=== PATIENT | male | born 1995 | race Caucasian/White ===

== ENCOUNTER 2016-05-26 17:56 | Emergency (ER) | payer SELFPAY ==
[2016-05-26] MEDS ORDERED: MOTRIN 600 MG PO ONE (18:14)
[2016-05-26] MEDS ORDERED: MOTRIN 600 MG ONE (18:18)
--- NOTE | 2016-05-26 18:20 | ERPHSYRPT ---
- History of Present Illness Time Seen by Provider: 05/26/16 18:08 Source: patient Exam Limitations: no limitations Patient Subjective Stated Complaint: back pain post fall Triage Nursing Assessment: standing on bucket last night working in bathroom and bucket and fell off landing on back. c/o pain between shoulder blades down middle of back to low back/hip,level. no bruising or swelling/redness noted. denies pain with urination and bowels. states has chronic back pain 'all the time but this hurts worse' Physician History: patient fell last pm from standing on a bucket; no head or neck injury; no loc; no abdominal pain , N&V; no hemauria; pain in post left chest and mid back; no other injuries or complaints; no prior hx Timing/Duration: yesterday, sudden, worse Method of Injury: fall Quality: sharp, aching Back Pain Location: lumbar spine Severity of Pain-Max: moderate Severity of Pain-Current: moderate Modifying Factors: Improves With: movement Associated Symptoms: denies symptoms Previous symptoms: no prior history Allergies/Adverse Reactions: No Known Drug Allergies Allergy (Unverified 03/20/13 12:03) Home Medications: No Home Meds 1 ea MC UD 05/26/16 [History] Hx Tetanus, Diphtheria Vaccination/Date Given: Yes Hx Influenza Vaccination/Date Given: No Hx Pneumococcal Vaccination/Date Given: No Immunizations Up to Date: Yes - Review of Systems Constitutional: No Symptoms Eyes: No Symptoms Ears, Nose, & Throat: No Symptoms Respiratory: No Cough, No Cyanosis, No Dyspnea Cardiac: Chest Pain (pot left ribs only), No Edema, No Palpitations, No Syncope Abdominal/Gastrointestinal: No Abdominal Pain, No Nausea, No Vomiting, No Diarrhea Genitourinary Symptoms: No Dysuria, No Frequency, No Hematuria, No Hesitancy, No Urinary Retention, No Flank Pain Musculoskeletal: Back Pain, Fall, Injury, No Arthralgias, No Neck Pain Skin: No Symptoms Neurological: No Symptoms Psychological: No Symptoms Endocrine: No Symptoms Hematologic/Lymphatic: No Symptoms Immunological/Allergic: No Symptoms - Past Medical History Pertinent Past Medical History: Yes Other Medical History: chronic back pain - Past Surgical History Past Surgical History: No - Social History Smoking Status: Current every day smoker How long have you smoked: 2 Exposure to second hand smoke: Yes Alcohol Use: Socially Drug Use: none Patient Lives Alone: No Significant Family History: no pertinent family hx - Nursing Vital Signs Temperature: 97.6 F Temperature Source: Oral Pulse Rate: 100 Respiratory Rate: 18 Pain Intensity: 8 - Physical Exam General Appearance: mild distress, alert, thin Eye Exam: PERRL/EOMI, eyes nml inspection, No photophobia Ears, Nose, Throat Exam: normal ENT inspection, pharynx normal, moist mucous membranes Neck Exam: normal inspection, non-tender, supple, full range of motion, No meningismus, No JVD, No subcutaneous emphysema Respiratory Exam: normal breath sounds, chest tenderness (post elft ribs only;) , lungs clear, airway intact, No respiratory distress, No diminished breath sounds, No crackles/rales, No rhonchi, No wheezing, No pleural rub, No other ( no crepitus) Cardiovascular Exam: regular rate/rhythm, normal heart sounds, normal peripheral pulses, tachycardia (100), capillary refill <2 sec, No murmur Gastrointestinal Exam: soft, normal bowel sounds, No tenderness, No guarding, No rebound, No organomegaly Rectal Exam: deferred Back Exam: normal inspection, normal range of motion, vertebral tenderness ( upper lumbar midline), No CVA tenderness, No decreased range of motion Extremity Exam: normal inspection, normal range of motion, pelvis stable, No clarke's sign, No pedal edema Peripheral Pulses: carotid (R): 4+, carotid (L): 4+, femoral (R): 4+, femoral (L ): 4+, dorsalis-pedis (R): 3+, dorsalis-pedis (L): 3+ Neurologic Exam: alert, oriented x 3, cooperative, 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 tested, normal mood/affect, nml cerebellar function, nml station & gait, sensation nml Skin Exam: normal color, warm, dry, No rash, No cyanosis SpO2 Interpretation: normal SpO2: 99 Oxygen Delivery: Room Air - Course Nursing assessment & vital signs reviewed: Yes - Radiology Exams Chest X-ray Interpretation: Interpreted by me, Negative, No Fracture, No Pneumothorax , Nml Heart Size, No Infiltrates, Nml Mediastinum L-Spine X-ray Interpretation: Interpreted by me, No Fracture, Other (spasm) Ordered Tests: Active Orders 24 hr Category Date Time Status Re-Check Vital Signs STAT Care 05/26/16 18:14 Completed CHEST 2 VIEWS (PA AND LAT) Stat Exams 05/26/16 18:15 Taken LUMBAR COMPLETE (MIN 4 VIEWS) Stat Exams 05/26/16 18:15 Taken Medication Summary Discontinued Medications Generic Name Dose Route Start Last Admin Trade Name Freq PRN Reason Stop Dose Admin Ibuprofen 600 mg 05/26/16 18:14 05/26/16 18:21 Motrin 600 Mg PO 05/26/16 18:15 600 mg STAT ONE Administration Ibuprofen Confirm 05/26/16 18:18 Motrin 600 Mg Administered 05/26/16 18:19 Dose 600 mg .ROUTE .STK-MED ONE - Progress Progress: pain not gone completely, re-examined (after xr) Progress Note: 05/26/16 18:19 xr ordered; meds given; will recheck 05/26/16 18:59 recheck, xr reviewed and negative; results and instructions given Counseled pt/family regarding: diagnosis, need for follow-up, rad results - Departure Time of Disposition: 18:59 Departure Disposition: Home Clinical Impression: Back contusion Condition: Stable Critical Care Time: No Referrals: MELISSA AGUILAR [Primary Care Provider] - Instructions: Contusion, Prevent Falls Additional Instructions: rest; ice; Back pain instructions. Rest, ice x 24-48 hours, then warm compresses; no heavy lifting (>20#'s) x 3-5 days; call [facility] or [facility] doctor in am for follow up appointment and or referral as needed. Return if problems. Take meds as prescribed. Follow-up with family doctor as directed. Call for appointment. Return if any problems. If you smoke please stop. Call or follow up with your family doctor for assistance if you need it to stop. Please wear your seatbelt when driving. Have a nice day. Thank you for allowing us to participate in your care today. :o) Dr Alfonzo Winter Prescriptions: Naproxen Sodium [Anaprox Ds] 550 mg PO Q8H PRN PRN #14 tablet PRN Reason: Pain
[2016-05-26 19:18] VITALS: BP 115/59; PULSE 93; O2SAT 100
--- NOTE | 2016-05-27 08:47 | XRAY ---
Indication: Pain following fall. Comparison: January 25, 2012 PA/lateral chest again demonstrates normal heart and lungs. Bony thorax intact again with minimal scoliosis.
--- NOTE | 2016-05-27 08:47 | XRAY ---
Indication: Pain following fall. Comparison: None 5 views of the lumbar spine demonstrates 5 lumbar vertebral segments in normal alignment with disc spaces preserved. No acute fracture, subluxation, or pars interarticularis defect. Visualized soft tissues unremarkable.
== END 2016-05-26 19:18 | disposition home or self-care (01) ==
LOC: ED 17:56
DX: S30.0XXA Contusion of lower back and pelvis, initial encounter (principal); W17.89XA Other fall from one level to another, initial encounter
CPT/HCPCS: 71020; 72110; 99283; 99284

== ENCOUNTER 2022-03-07 19:30 | Emergency (ER) | payer SELFPAY ==
[2022-03-07 20:42] VITALS: O2SAT 99
[2022-03-07 21:18] VITALS: BP 125/72; PULSE 72
[2022-03-07] MEDS ORDERED: Augmentin 875-125 Tablet PO ONE (21:32)
[2022-03-07] MEDS ORDERED: TORAdol 30 mg Injection IM ONE (21:32)
[2022-03-07] MEDS ORDERED: Augmentin 875-125 Tablet ONE (21:34)
[2022-03-07] MEDS ORDERED: TORAdol 30 mg Injection ONE (21:34)
--- NOTE | 2022-03-07 21:38 | ERPHSYRPT ---
- History of Present Illness Time Seen by Provider: 03/07/22 20:50 Source: patient Exam Limitations: no limitations Patient Subjective Stated Complaint: My right cheek is really swollen and I have tooth pain. Triage Nursing Assessment: pt ambulated into ER without diff. Pt alert and oriented x3, cooperative. Pt has edema to rt cheek and face, c/o pain to teeth to rt upper and lower. Obvious dental caries noted to upper and lower. Pt states, "the swelling just started this morning around 8am but has gotten worse throughout the day". Physician History: Patient is a 26-year-old male with a history of carious teeth presents to our ED with complaints of dental pain and swollen right cheek. Symptoms started 2 to 3 days ago. Swelling of his cheek was observed today. Patient admits to history of multiple carious teeth. Pain described as an ache that is localized. No radiation. Pain worse with palpation to the right upper canine. Pain improved with rest. No trauma. No headache. No fever. Patient states otherwise healthy. He voices no other complaints or concerns at this time. Portions of this note were created with voice recognition technology. There may be grammatical, spelling, punctuation or sound alike errors Timing/Duration: day(s) Severity: moderate (2 to 3 days ago) Modifying Factors: Improves With: nothing Associated Symptoms: denies symptoms Allergies/Adverse Reactions: No Known Drug Allergies Allergy (Verified 03/07/22 20:49) Hx Tetanus, Diphtheria Vaccination/Date Given: Yes Hx Influenza Vaccination/Date Given: No Hx Pneumococcal Vaccination/Date Given: No Immunizations Up to Date: Yes Travel Risk - International Travel Have you traveled outside of the country in past 3 weeks: No - Coronavirus Screening Are you exhibiting any of the following symptoms?: No Close contact with a COVID-19 positive Pt in past 14-21 Days: No - Vaccine Status Have you recieved a Covid-19 vaccination: No - Review of Systems Constitutional: No Symptoms, No Fever, No Chills Eyes: No Symptoms Ears, Nose, & Throat: No Symptoms Respiratory: No Symptoms, No Cough, No Dyspnea Cardiac: No Symptoms, No Chest Pain, No Edema, No Syncope Abdominal/Gastrointestinal: No Symptoms, No Abdominal Pain, No Nausea, No Vomiting, No Diarrhea Genitourinary Symptoms: No Symptoms, No Dysuria Musculoskeletal: No Symptoms, No Back Pain, No Neck Pain Skin: No Symptoms, No Rash Neurological: No Symptoms, No Dizziness, No Focal Weakness, No Sensory Changes Psychological: No Symptoms Endocrine: No Symptoms Hematologic/Lymphatic: No Symptoms Immunological/Allergic: No Symptoms All Other Systems: Reviewed and Negative - Past Medical History Pertinent Past Medical History: Yes Musculoskeletal History: Fractures, Other Other Medical History: back pain from falling from ladder - Past Surgical History Past Surgical History: No Musculoskeletal: Orthopedic Surgery Other Surgical History: jace and pins to rt femur - Social History Smoking Status: Current every day smoker How long have you smoked: 16 yrs Exposure to second hand smoke: Yes Alcohol Use: Socially Drug Use: none Patient Lives Alone: No Significant Family History: no pertinent family hx - Nursing Vital Signs Nursing Vital Signs: Initial Vital Signs Temperature 98.1 F 03/07/22 20:40 Pulse Rate 88 03/07/22 20:40 Respiratory Rate 18 03/07/22 20:40 Blood Pressure 141/69 03/07/22 20:40 O2 Sat by Pulse Oximetry 99 03/07/22 20:40 Pain Scale Pain Intensity 7 - Physical Exam General Appearance: no apparent distress, alert, other (Multiple carious teeth including teeth #5 6 and 7. Possible canine space abscess.) Eye Exam: PERRL/EOMI, eyes nml inspection Ears, Nose, Throat Exam: normal ENT inspection, TMs normal, pharynx normal, moist mucous membranes Neck Exam: normal inspection, non-tender, supple, full range of motion Respiratory Exam: normal breath sounds, lungs clear, No chest tenderness, No respiratory distress Cardiovascular Exam: regular rate/rhythm, normal heart sounds, normal peripheral pulses Gastrointestinal/Abdomen Exam: soft, normal bowel sounds, No tenderness, No mass Back Exam: normal inspection, normal range of motion, No CVA tenderness, No vertebral tenderness Extremity Exam: normal inspection, normal range of motion, pelvis stable Neurologic Exam: alert, oriented x 3, cooperative, normal mood/affect, nml cerebellar function, nml station & gait, sensation nml, No motor deficits Skin Exam: normal color, warm, dry, No rash Lymphatic Exam: No adenopathy SpO2 Interpretation: normal SpO2: 99 O2 Delivery: Room Air - Course Nursing assessment & vital signs reviewed: Yes Ordered Tests: Medication Summary Generic Name Dose Route Start Last Admin Trade Name Freq PRN Reason Stop Dose Admin Amoxicillin/Clavulanate Potassium 875 mg 03/07/22 21:32 Amox Tr/Potassium Clavulanate 875 Mg Tablet PO 03/07/22 21:33 STAT ONE Ketorolac Tromethamine 30 mg 03/07/22 21:32 Ketorolac Tromethamine 30 Mg/Ml Inj IM 03/07/22 21:33 STAT ONE - Progress Progress: improved Progress Note: Patient reassessed. Pain improved. Patient received a IM dose of Toradol as well as Augmentin. A prescription for Augmentin was forwarded to patient's pharmacy. Patient agrees to follow-up with a dentist within 48 hours for evaluation. He voices no other complaints concerns at this time. Portions of this note were created with voice recognition technology. There may be grammatical, spelling, punctuation or sound alike errors 03/07/22 21:38 Counseled pt/family regarding: diagnosis, need for follow-up - Departure Departure Disposition: Home Clinical Impression: Dental abscess, Pain, dental, Carious teeth Condition: Stable Critical Care Time: No Referrals: DANIELLA MCKENNA [Primary Care Provider] - Follow up/PCP as directed Additional Instructions: Discharge/Care Plan JUANREA LOMAX was seen on 03/07/22 in the Emergency Room. The patient was counseled regarding Diagnosis,Lab results, Imaging studies, need for follow up and when to return to the Emergency Room. Prescriptions given: Discharge Note I have spoken with the patient and/or caregivers. I have explained the patient's condition, diagnosis and treatment plan based on the information available to me at this time. I have answered the patient's and/or caregiver's questions and addressed any concerns. The patient and/or caregivers have as good understanding of the patient's diagnosis, condition and treatment plan as can be expected at this point. The vital signs have been stable. The patient's condition is stable and appropriate for discharge from the emergency department. The patient will pursue further outpatient evaluation with the primary care physician or other designated or consulting physician as outlined in the discharge instructions. The patient and/or caregivers are agreeable to this plan of care and follow-up instructions have been explained in detail. The patient and/or caregivers have received these instruction. The patient/and or caregivers are aware that any significant change in condition or worsening of symptoms should prompt an immediate return to this or the closest emergency department or call 911. Prescriptions: Amox Tr/Potass Clav. 875 mg [Augmentin 875-125 Tablet] 875 mg PO BID 7 Days #14 tablet
== END 2022-03-07 21:44 | disposition home or self-care (01) ==
LOC: ED 19:30
DX: K04.7 Periapical abscess without sinus (principal); K02.9 Dental caries, unspecified; K08.89 Other specified disorders of teeth and supporting structures; Z72.0 Tobacco use; Z28.310 Unvaccinated for COVID-19
CPT/HCPCS: 96372; 99283; J1885; A9270-GY

== ENCOUNTER 2025-03-10 05:28 | Emergency (ER) | payer MEDICAID ==
[2025-03-10 05:57] VITALS: RESP 18; TEMP 98.1
--- NOTE | 2025-03-10 06:09 | ERPHSYRPT ---
- History of Present Illness Time Seen by Provider: 03/10/25 06:00 Source: patient Exam Limitations: no limitations Patient Subjective Stated Complaint: c/o numbess Triage Nursing Assessment: patient brought to ED by friend with c/o facial numbness. patient states it started last , denies chest pain, headaches, N/V/D, or dizziness. states he doesn't have issues swallowing, gait steady, vitals wnl, skin w/n/d, patient has facial droop when asked to smile, unablw to raise right eyebrow. doesn't appear to be in any distress Physician History: 29-year-old male presents to the ED for right facial drooping associated drooling for few days. Patient noted this started on . No headache. No numbness tingling weakness. No associated trauma. No other systemic symptoms. Denies any recent illnesses. Denies ear pain. Denies facial pain. Timing/Duration: day(s) Severity: moderate Character of Deficits: new weakness, altered sensation, Left Facial Deficits: no difficulties Baseline/Normal Cognition: alert oriented x 3 Current Cognition: alert oriented x 3 Baseline Gait: walks w/o assistance Associated Symptoms: denies symptoms, other (Patient does note now his right eye is starting to get irritated and dry.) Allergies/Adverse Reactions: No Known Drug Allergies Allergy (Verified 03/10/25 05:57) Hx Tetanus, Diphtheria Vaccination/Date Given: No (unsure) Hx Influenza Vaccination/Date Given: No Hx Pneumococcal Vaccination/Date Given: No Travel Risk - International Travel Have you traveled outside of the country in past 3 weeks: No - Emerging Infectious Disease Are you exhibiting symptoms associated with any current EIDs: No - Review of Systems Constitutional: No Fever, No Chills Eyes: Eye Redness Ears, Nose, & Throat: No Symptoms Respiratory: No Symptoms Cardiac: No Chest Pain, No Edema, No Syncope Abdominal/Gastrointestinal: No Abdominal Pain, No Nausea, No Vomiting, No Diarrhea Genitourinary Symptoms: No Dysuria Musculoskeletal: No Back Pain, No Neck Pain Skin: No Rash Neurological: Focal Weakness (Right sided facial droop with drooling.), No Gait Changes, No Headache, No Paralysis, No Sensory Changes, No Speech Changes Psychological: No Symptoms Endocrine: No Symptoms - Past Medical History Pertinent Past Medical History: Yes Musculoskeletal History: Fractures, Other Other Medical History: back pain from falling from ladder - Past Surgical History Past Surgical History: No Musculoskeletal: Orthopedic Surgery Other Surgical History: jace and pins to rt femur, left wrist surgery Significant Family History: no pertinent family hx - Social History Smoking Status: Current every day smoker How long have you smoked: 16 yrs Exposure to second hand smoke: Yes Drug Use: none - Social Determinants of Health Will the patient participate in the screening: Yes Do you worry about a steady place to live?: No Do you have any problems with any of the following?: No known problems In the past 12 months,have you had to go without utilities?: No Transportation Issues: No Has anyone in your support network made you feel unsafe?: No Have you or anyone in your house had to go w/o enough food: No - Nursing Vital Signs Nursing Vital Signs: Initial Vital Signs Temperature 98.1 F 03/10/25 05:50 Pulse Rate 77 03/10/25 05:50 Respiratory Rate 18 03/10/25 05:50 Blood Pressure 122/73 03/10/25 05:50 O2 Sat by Pulse Oximetry 99 03/10/25 05:50 Pain Scale Pain Intensity 0 - [place] Coma Scale Best Eye Response ([place]): (4) open spontaneously Best Verbal Response ([place]): (5) oriented Best Motor Response ([place]): (6) obeys commands [place] Total: 15 - Physical Exam General Appearance: no apparent distress Eye Exam: right eye: other (Mild right conjunctival injection. 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 Unable to close the right eye compared pleat consistent with Frey's sign.), No hearing deficit (R), No hearing deficit (L), No tongue deviation to L Motor/Sensory: no motor deficit DTR: knee (R): 2+, knee (L): 2+ Skin Exam: normal color SpO2 Interpretation: normal SpO2: 99 - Progress Progress Note: 03/10/25 06:08 Signs symptoms consistent with Frey's palsy. No other neurological findings noted. Patient has headache. Denies trauma. Denies any recent illnesses. No signs of blistering or lesions in the TMs associated with HSV. No other focal neurological signs. I does not close consent Wels Frey sign. Patient unable to wrinkle the forehead as well. Discussed with patient treatment plan diagnosis and anticipated course also informed patient he would need to use eyedrops and tape his eye shut while sleeping at night. - Departure Departure Disposition: Home Clinical Impression: Facial paralysis/[place] palsy Condition: Stable Critical Care Time: No Referrals: DANIELLA MCKENNA [Primary Care Provider, [facility]] - Follow up/PCP as directed Additional Instructions: Discharge/Care Plan JUANCHICOGREGORIA MONIE was seen on 03/10/25 in the Emergency Room. The patient was counseled regarding Diagnosis,Lab results, Imaging studies, need for follow up and when to return to the Emergency Room. Prescriptions given: Discharge Note I have spoken with the patient and/or caregivers. I have explained the patient's condition, diagnosis and treatment plan based on the information available to me at this time. I have answered the patient's and/or caregiver's questions and addressed any concerns. The patient and/or caregivers have as good understanding of the patient's diagnosis, condition and treatment plan as can be expected at this point. The vital signs have been stable. The patient's condition is stable and appropriate for discharge from the emergency department. The patient will pursue further outpatient evaluation with the primary care physician or other designated or consulting physician as outlined in the discharge instructions. The patient and/or caregivers are agreeable to this plan of care and follow-up instructions have been explained in detail. The patient and/or caregivers have received these instruction. The patient/and or caregivers are aware that any significant change in condition or worsening of symptoms should prompt an immediate return to this or the closest emergency department or call 911. Follow-up with your primary provider this week for reevaluation and continued monitoring Tape your eye shut at night in order to keep it moist. Use the eye wetting drops frequently and liberally to keep your eye wet Return to the ED if no improvement, pain, numbness and weakness anywhere else in your body, worsening, or further concerns Prescriptions: Carboxymethylcellulose Sodium [Artificial Tears 15 ML] 30 ml OP 5XD 14 Days Prednisone 20 mg [Deltasone 20 mg] 20 mg PO DAILY 10 Days #24 tablet Valacyclovir HCl [Valtrex] 1,000 mg PO BID 10 Days #20 tablet
[2025-03-10 06:36] VITALS: BP 109/65; PULSE 80; O2SAT 97
== END 2025-03-10 06:36 | disposition home or self-care (01) ==
LOC: ED 05:28
DX: G51.0 Bell's palsy (principal); Z79.52 Long term (current) use of systemic steroids; Z79.899 Other long term (current) drug therapy; Z72.0 Tobacco use